=== PATIENT | male | born 1970 | race Two or more races ===

== ENCOUNTER 2024-11-05 20:45 | Inpatient (IN) | payer BC ==
[~2024-11-05] VITALS: Ht 177.8 cm; Wt 107.0 kg
[2024-11-05] MEDS ORDERED: LOSA50TA64 PO (21:03)
[2024-11-05 21:19] LABS: BASOPHILS % (AUTO) 0.4 % (0-1); EOSINOPHILS # (AUTO) 0.1 X10'3 (0-0.9); EOSINOPHILS % (AUTO) 0.9 % (0-6); LYMPHOCYTES # (AUTO) 1.1 X10'3 (1.1-4.8); LYMPHOCYTES % (AUTO) 11.2 % (21-51); MEAN CORPUSCULAR HEMOGLOBIN 31.1 PG (27.0-31.0); MEAN CORPUSCULAR VOLUME 89.1 FL (78-98); MEAN PLATELET VOLUME 8.1 FL (7.4-10.4); MONOCYTES # (AUTO) 0.8 X10'3 (0-0.9); NEUTROPHILS # (AUTO) 7.6 X10'3 (1.8-7.7); NEUTROPHILS % (AUTO) 79.5 % (42-75); PLATELET COUNT 244 X10'3 (140-440); RED BLOOD COUNT 4.49 X10'6 (4.70-6.10); RED CELL DISTRIBUTION WIDTH 13.8 % (11.5-14.5); WHITE BLOOD COUNT 9.6 X10'3 (4.5-11.0)
[2024-11-05 21:39] LABS: ALBUMIN 3.4 G/DL (3.4-5.0); ANION GAP 10 (8-16); BLOOD UREA NITROGEN 11 MG/DL (7-18); BUN/CREATININE RATIO 12.8 (10.0-20.0); CALCIUM 8.3 MG/DL (8.5-10.1); CHLORIDE 108 MMOL/L (99-107); CREATININE 0.86 MG/DL (0.60-1.10); GLUCOSE 99 MG/DL (70-104); MAGNESIUM 2.2 MG/DL (1.5-2.4); POTASSIUM 4.1 MMOL/L (3.5-5.1); PRO BRAIN NATRIURETIC PEPTIDE 197 PG/ML (0-125); SODIUM 143 MMOL/L (135-145); TOTAL CARBON DIOXIDE 25.3 MMOL/L (24-32); eCRCL 109 ML/MIN; eGFR > 90 ML/MIN
[2024-11-05 21:59] LABS: APTT 45 SECONDS (22-32); PROTHROMBIN TIME 10.3 SECONDS (9.0-12.0)
[2024-11-05] MEDS: heparin 25,000 UNIT/250ml bag 250 ML IV PRN (22:01)
[2024-11-05] MEDS: HEPARIN DRIP INITAL BOLUS --- DO NOT GIVE/ORDER MC ONE (22:03)
[2024-11-05] MEDS ORDERED: tirofiban 12.5mg in NS 250mL 250 ML IV ONE (22:05)
[2024-11-05] MEDS ORDERED: magnesium sulf-water 2g/50mL 50 ML IV PRN (22:10)
[2024-11-05] MEDS ORDERED: magnesium Cl slow-release 64mg tablet PO PRN (22:10)
[2024-11-05] MEDS ORDERED: morphine 2 MG/ML inj. syringe IV PRN ×2 (22:10)
[2024-11-05] MEDS ORDERED: mag hydrox/Alum hydrox/simeth 30ml oral suspension PO PRN (22:10)
[2024-11-05] MEDS ORDERED: potassium Cl 40MEQ/1/2NS 520ml 520 ML IV PRN (22:10)
[2024-11-05] MEDS ORDERED: potassium Cl 20 mEq SR tablet PO PRN (22:10)
[2024-11-05] MEDS ORDERED: acetaminophen 325mg tablet PO PRN (22:10)
[2024-11-05] MEDS ORDERED: ondansetron/PF 4mg/2ml inj IV PRN (22:10)
[2024-11-05] MEDS ORDERED: magnesium hydroxide 30ml (MOM) UD suspension PO PRN (22:10)
[2024-11-05] MEDS ORDERED: magnesium sulf-water 4G/100mL 100 ML IV PRN (22:10)
[2024-11-05] MEDS: PERFLUTREN PROTEIN-A MICROSPHR (Optison) 0.22 MG/ML 3ML VIAL IV ONE (22:14)
[2024-11-05] MEDS: tirofiban 5mg in NS 100mL 100 ML IV ONE (22:42)
[2024-11-05] MEDS: normal saline 1000ml 1,000 ML IV SCH (22:56)
[2024-11-06] VITALS (27 sets, daily range): BP systolic 110–177; BP diastolic 55–95; PULSE 52–79; RESP 10–22; TEMP 97.6–98.3; O2SAT 91–98
[2024-11-06 00:11] LABS: URINE AMPHETAMINE SCREEN NEGATIVE (Neg); URINE BARBITUATE SCREEN NEGATIVE (Neg); URINE BENZODIAZEPINES SCREEN NEGATIVE (Neg); URINE CANNABINOID SCREEN NEGATIVE (Neg); URINE COCAINE SCREEN NEGATIVE (Neg); URINE METHADONE SCREEN NEGATIVE (Neg); URINE OPIATE SCREEN POSITIVE (Neg); URINE PHENCYCLIDINE SCREEN NEGATIVE (Neg)
[2024-11-06] MEDS: tirofiban 12.5mg in NS 250mL IV SCH (02:06)
[2024-11-06 02:26] LABS: BASOPHILS % (AUTO) 0.4 % (0-1); EOSINOPHILS # (AUTO) 0.2 X10'3 (0-0.9); EOSINOPHILS % (AUTO) 2.5 % (0-6); HEMATOCRIT 39.9 % (42.0-52.0); HEMOGLOBIN 13.6 g/dl (14.0-17.9); LYMPHOCYTES # (AUTO) 1.3 X10'3 (1.1-4.8); LYMPHOCYTES % (AUTO) 18.2 % (21-51); MEAN CORPUSCULAR HEMOGLOBIN 30.7 PG (27.0-31.0); MEAN CORPUSCULAR VOLUME 90.2 FL (78-98); MEAN PLATELET VOLUME 8.3 FL (7.4-10.4); MONOCYTES # (AUTO) 0.6 X10'3 (0-0.9); MONOCYTES % (AUTO) 9.3 % (2-12); NEUTROPHILS # (AUTO) 4.8 X10'3 (1.8-7.7); NEUTROPHILS % (AUTO) 69.6 % (42-75); PLATELET COUNT 244 X10'3 (140-440); RED BLOOD COUNT 4.42 X10'6 (4.70-6.10); RED CELL DISTRIBUTION WIDTH 13.9 % (11.5-14.5)
[2024-11-06 02:40] LABS: ALANINE AMINOTRANSFERASE 26 U/L (12-78); ALBUMIN 3.1 G/DL (3.4-5.0); ALBUMIN/GLOBULIN RATIO 1.1 (1.1-1.5); ALKALINE PHOSPHATASE 98 IU/L (46-116); ANION GAP 9 (8-16); ASPARTATE AMINO TRANSFERASE 51 U/L (10-37); BILIRUBIN,TOTAL 0.3 MG/DL (0.1-1.0); BLOOD UREA NITROGEN 8 MG/DL (7-18); BUN/CREATININE RATIO 9.8 (10.0-20.0); CALCIUM 8.4 MG/DL (8.5-10.1); CHLORIDE 109 MMOL/L (99-107); CREATININE 0.82 MG/DL (0.60-1.10); GLUCOSE 99 MG/DL (70-104); MAGNESIUM 2.1 MG/DL (1.5-2.4); POTASSIUM 3.4 MMOL/L (3.5-5.1); SODIUM 144 MMOL/L (135-145); TOTAL CARBON DIOXIDE 25.8 MMOL/L (24-32); eCRCL 114 ML/MIN; eGFR > 90 ML/MIN
[2024-11-06] MEDS: heparin 10,000 units/1 ML INJ IV PRN (02:58)
[2024-11-06] MEDS: MESSAGE TO NURSING IV ONE ×2 (03:08→10:00)
[2024-11-06] MEDS: potassium Cl 20 mEq SR tablet PO PRN (03:14)
[2024-11-06] MEDS: K and/or MAG REPLACEMENT MC SCH (08:06)
[2024-11-06 09:16] LABS: HEMOGLOBIN A1C 5.2 % (4.5-6.2)
[2024-11-06] MEDS: atorvastatin 10mg tablet PO SCH (09:24)
[2024-11-06] MEDS: docusate sod 100mg capsule PO SCH (09:25)
[2024-11-06] MEDS: losartan 50mg tablet PO SCH (09:25)
[2024-11-06] MEDS: aspirin 81mg, enteric-coated 1 TAB TABLET.DR PO SCH (09:25)
[2024-11-06 09:27] LABS: CHOL/HDL RATIO 2.7 (0.00-4.99); CHOLESTEROL 144 MG/DL (0-200); HDL CHOLESTEROL 53 MG/DL (35-60); LDL CHOLESTEROL 76 MG/DL (50-100); THYROID STIMULATING HORMONE 1.05 ulU/ml (0.34-4.50); TRIGLYCERIDES 93 MG/DL (20-135)
[2024-11-06] MEDS ORDERED: iohexol 350MG/ML 100ml bottle IV ONE ×2 (10:29→11:18)
[2024-11-06] MEDS ORDERED: midazolam 1 mg/ML 2ml injection ONE (10:29)
[2024-11-06] MEDS ORDERED: LIDOcaine 1% 30ml preserv. free vial ONE (10:29)
[2024-11-06] MEDS ORDERED: fentaNYL/PF 50MCG/1 ML 2ML syringe ONE (10:29)
[2024-11-06] MEDS ORDERED: iohexol 350 MG/ML 50ML vial IV ONE ×2 (10:29→11:43)
[2024-11-06] MEDS ORDERED: diphenhydrAMINE 50 mg/ml inj ONE (11:07)
[2024-11-06] MEDS ORDERED: atropine 0.1mg/ml 10ml syringe ONE (11:11)
[2024-11-06] MEDS ORDERED: tirofiban 12.5mg in NS 250mL 250 ML IV ONE (11:39)
[2024-11-06] MEDS ORDERED: ticagrelor 90mg tablet ONE (11:57)
[2024-11-06] MEDS ORDERED: OXAZEpam 15mg capsule PO PRN (13:05)
[2024-11-06] MEDS ORDERED: proCHLORperazine 10 MG/2 ml inj IV PRN (13:05)
[2024-11-06] MEDS ORDERED: HYDROcodone/acetaminophen 5mg/325mg tablet PO PRN (13:05)
[2024-11-06] MEDS ORDERED: ondansetron/PF 4mg/2ml inj IV PRN (13:05)
[2024-11-06] MEDS ORDERED: HYDROcodone/acetaminophen 10/325mg tab PO PRN (13:05)
[2024-11-06] MEDS ORDERED: nitroGLYCERIN 0.4mg SUBLingual tab SL PRN (13:05)
[2024-11-06] MEDS: normal saline 1000ml 1,000 ML IV SCH (13:19)
[2024-11-06] MEDS: ticagrelor 90mg tablet PO SCH (21:02)
[2024-11-07] VITALS (9 sets, daily range): BP systolic 108–127; BP diastolic 66–76; PULSE 50–64; RESP 12–20; TEMP 97.3–97.6; O2SAT 95–97
[2024-11-07 06:33] LABS: BASOPHILS % (AUTO) 0.3 % (0-1); EOSINOPHILS # (AUTO) 0.1 X10'3 (0-0.9); EOSINOPHILS % (AUTO) 1.5 % (0-6); HEMATOCRIT 42.1 % (42.0-52.0); HEMOGLOBIN 14.4 g/dl (14.0-17.9); LYMPHOCYTES # (AUTO) 1.8 X10'3 (1.1-4.8); LYMPHOCYTES % (AUTO) 23.4 % (21-51); MEAN CORPUSCULAR HEMOGLOBIN 30.9 PG (27.0-31.0); MEAN CORPUSCULAR HGB CONC 34.3 g/dL (33.0-36.5); MEAN CORPUSCULAR VOLUME 90.3 FL (78-98); MEAN PLATELET VOLUME 8.1 FL (7.4-10.4); MONOCYTES # (AUTO) 0.7 X10'3 (0-0.9); MONOCYTES % (AUTO) 8.8 % (2-12); PLATELET COUNT 234 X10'3 (140-440); RED BLOOD COUNT 4.66 X10'6 (4.70-6.10); RED CELL DISTRIBUTION WIDTH 13.6 % (11.5-14.5); WHITE BLOOD COUNT 7.7 X10'3 (4.5-11.0)
[2024-11-07 06:58] LABS: ALANINE AMINOTRANSFERASE 24 U/L (12-78); ALBUMIN 3.2 G/DL (3.4-5.0); ALKALINE PHOSPHATASE 98 IU/L (46-116); ANION GAP 8 (8-16); ASPARTATE AMINO TRANSFERASE 33 U/L (10-37); BILIRUBIN,TOTAL 0.4 MG/DL (0.1-1.0); BLOOD UREA NITROGEN 8 MG/DL (7-18); BUN/CREATININE RATIO 9.1 (10.0-20.0); CALCIUM 8.8 MG/DL (8.5-10.1); CHLORIDE 108 MMOL/L (99-107); CREATININE 0.88 MG/DL (0.60-1.10); GLUCOSE 97 MG/DL (70-104); MAGNESIUM 2.2 MG/DL (1.5-2.4); POTASSIUM 4.4 MMOL/L (3.5-5.1); SODIUM 143 MMOL/L (135-145); TOTAL CARBON DIOXIDE 26.7 MMOL/L (24-32); TOTAL PROTEIN 6.4 G/DL (6.4-8.2); eCRCL 100 ML/MIN; eGFR > 90 ML/MIN
[2024-11-07] MEDS: atorvastatin 20mg tablet PO SCH (07:38)
[2024-11-07] MEDS ORDERED: ASPI-1071 PO (12:42)
[2024-11-07] MEDS ORDERED: CLOP-32 PO (12:42)
[2024-11-07] MEDS ORDERED: ATOR20TA66 PO (12:42)
[2024-11-07] MEDS ORDERED: METO-395 PO (19:18)
== END 2024-11-07 13:42 | disposition home or self-care (01) | DRG 322 ==
LOC: ER 20:48 → ED HOLD 22:13 → EDBEDREQ 22:43 → CICU 2S 11-06 00:09 → PCU 3S 11-06 19:26
PROVIDERS: ADMIT Internal Medicine; ATTEND Family Medicine
PROC: 4A023N7 Measurement of Cardiac Sampling and Pressure, Left Heart, Percutaneous Approach (ICD-10-PCS; principal; 2024-11-06)
PROC: B2111ZZ Fluoroscopy of Multiple Coronary Arteries using Low Osmolar Contrast (ICD-10-PCS; 2024-11-06)
PROC: B2151ZZ Fluoroscopy of Left Heart using Low Osmolar Contrast (ICD-10-PCS; 2024-11-06)
PROC: 027035Z Dilation of Coronary Artery, One Artery with Two Drug-eluting Intraluminal Devices, Percutaneous Approach (ICD-10-PCS; 2024-11-06)
PROC: B41F1ZZ Fluoroscopy of Right Lower Extremity Arteries using Low Osmolar Contrast (ICD-10-PCS; 2024-11-06)
DX: I21.4 Non-ST elevation (NSTEMI) myocardial infarction (principal); F17.200 Nicotine dependence, unspecified, uncomplicated; I10 Essential (primary) hypertension; Z79.899 Other long term (current) drug therapy
CPT/HCPCS: 93306; 93458; 99291; C9600; 36415; 80048; 80053; 80061; 80305; 83036; 83735; 83880; 84443; 84484; 85025; 85347; 85610; 85730; 87081; 93005; 99152; 99153; A6213; A6258; A6449; C1751; C1760; C1769; C1874; G0378; J0461; J1200; J1644; J2003; J2250; J3010; J3246; J7030; J7040; Q9967